=== PATIENT | female | born 1945 | race Caucasian/White ===

== ENCOUNTER 2017-01-01 11:51 | Emergency (ER) | payer MEDICARE, OTHER ==
[~2017-01-01 11:51] MED LIST: ASPIRIN EC81 MG PO; CIPRO500 MG PO; FERROUS SULFAT325 MG PO; LIPITOR20 MG PO; LISINOPRIL40 MG PO; LOPRESSOR50 MG PO; NEURONTIN800 MG PO; NICOTINE TRANSD21 MG TOP; NORVASC10 MG PO; TYLENOL325 MG PO
== END 2017-01-01 16:44 | disposition short-term general hospital (02) ==
LOC: ER 11:51
DX: J18.9 Pneumonia, unspecified organism (principal); I48.91 Unspecified atrial fibrillation; I99.8 Other disorder of circulatory system; E78.5 Hyperlipidemia, unspecified; E11.9 Type 2 diabetes mellitus without complications; J44.9 Chronic obstructive pulmonary disease, unspecified; I10 Essential (primary) hypertension; F17.210 Nicotine dependence, cigarettes, uncomplicated; Z90.49 Acquired absence of other specified parts of digestive tract; Z98.890 Other specified postprocedural states; Z79.82 Long term (current) use of aspirin; Z79.84 Long term (current) use of oral hypoglycemic drugs; Z79.899 Other long term (current) drug therapy
CPT/HCPCS: 36415; 96365; 96367; 96368; 96375; 96376; J1644